=== PATIENT | male | born 1960 | race African-American/Black ===

== ENCOUNTER 2020-06-22 16:32 | Emergency (ER) | payer MEDICARE, OTHER ==
[2020-06-22 16:40] VITALS: TEMP 98.8
--- NOTE | 2020-06-22 16:52 | ED ---
General Adult HPI - General Chief complaint: Extremity Injury, Lower Stated complaint: Leg pain Time Seen by Provider: 06/22/20 16:40 Source: patient, RN notes reviewed, old records reviewed Mode of arrival: wheelchair Limitations: no limitations - History of Present Illness Initial comments: 60-year-old male presenting for evaluation of left hip pain. This is been ongoing for at least one month. He states the pain is worse with ambulation. He denies injury or trauma. He denies pain beyond the knee. He states the pain from his hip does radiate into his anterior thigh. He denies fever or chills. Denies abdominal pain. He states that time the pain is severe especially when he tries to walk long distances or uses this hip. He denies numbness or tingling to the leg. - Related Data Home Medications Medication Instructions Recorded Confirmed Cholecalciferol [Vitamin D3 (25 1,000 unit PO DAILY 06/22/20 06/22/20 Mcg = 1000 Iu)] Synthroid Unknown Dose 1 tab PO DAILY 06/22/20 06/22/20 metFORMIN HCL [Glucophage] 500 mg PO BID 06/22/20 06/22/20 Previous Rx's Medication Instructions Recorded Ibuprofen [Motrin] 400 mg PO Q6HR PRN #30 tab 06/22/20 Allergies Allergy/AdvReac Type Severity Reaction Status Date / Time acetaminophen Allergy kidneys Verified 06/22/20 17:29 Review of Systems ROS Statement: Those systems with pertinent positive or pertinent negative responses have been documented in the HPI. ROS Other: All systems not noted in ROS Statement are negative. Past Medical History Past Medical History: Diabetes Mellitus Additional Past Medical History / Comment(s): "kidneys are weak." History of Any Multi-Drug Resistant Organisms: None Reported Additional Past Surgical History / Comment(s): 3 screws in left hand, javier in left and right shoulder, steel plate in right forearm, screws in pelvix, Past Psychological History: No Psychological Hx Reported Smoking Status: Former smoker Past Alcohol Use History: None Reported Past Drug Use History: None Reported General Exam Limitations: no limitations General appearance: alert, in no apparent distress Head exam: Present: atraumatic, normocephalic Eye exam: Present: normal appearance, PERRL ENT exam: Present: normal exam Neck exam: Present: normal inspection. Absent: tenderness, meningismus Respiratory exam: Present: normal lung sounds bilaterally. Absent: respiratory distress, wheezes Cardiovascular Exam: Present: regular rate, normal rhythm GI/Abdominal exam: Present: soft. Absent: distended, tenderness, guarding Extremities exam: Present: normal inspection, full ROM (Patient has good range of motion of the hip and knee.), normal capillary refill, other (Distal pulses on the left, 2+ dorsalis pedis, extremity is warm, there is no swelling, no edema.). Absent: pedal edema, joint swelling, calf tenderness Course Vital Signs 06/22/20 16:34 Temperature 98.8 F Pulse Rate 77 Respiratory 17 Rate Blood Pressure 129/83 O2 Sat by Pulse 96 Oximetry Medical Decision Making - Medical Decision Making X-ray performed of the left hip negative for fracture dislocation, does show osteoarthritis of the left hip. Patient will try Tylenol Motrin [id number]. He will follow-up with his primary care physician. Disposition Clinical Impression: Osteoarthritis of hip Disposition: HOME SELF-CARE Condition: Good Instructions (If sedation given, give patient instructions): Osteoarthritis (ED) Prescriptions: Ibuprofen [Motrin] 400 mg PO Q6HR PRN #30 tab PRN Reason: Pain Is patient prescribed a controlled substance at d/c from ED?: No Referrals: Nonstaff,Physician [Primary Care Provider] - 1-2 days Geovanni Dos Santos MD [REFERRING] - 1-2 days Time of Disposition: 17:37
--- NOTE | 2020-06-22 17:27 | XR ---
Left hip HISTORY: Pain 2 views of the left hip There is distortion of the superior and inferior pubic ramus, correlate for history of trauma, fractu re, suspect possible similar findings along the inferior pubic ramus on the right. Geode formation pr esent within the femoral head, question some mild marginal spurring. Bone mineralization and alignmen t are otherwise maintained. Joint space within normal limits. IMPRESSION: Mild osteoarthritic change is suspected. Correlate for history of trauma to the pelvis as described.
[2020-06-22 18:06] VITALS: BP 136/71; PULSE 86; RESP 16
[2020-06-22 18:14] LABS: Glucose,Whole Blood 301 mg/dL (75-99)
== END 2020-06-22 18:05 | disposition home or self-care (01) ==
LOC: EC 16:32
DX: M16.12 Unilateral primary osteoarthritis, left hip (principal); E11.9 Type 2 diabetes mellitus without complications; Z79.84 Long term (current) use of oral hypoglycemic drugs; Z79.899 Other long term (current) drug therapy; Z87.891 Personal history of nicotine dependence; Z88.6 Allergy status to analgesic agent
CPT/HCPCS: 36415; 73502; 99284

== ENCOUNTER 2020-07-11 20:01 | Emergency (ER) | payer MEDICARE ==
[2020-07-11 20:06] VITALS: RESP 18
--- NOTE | 2020-07-11 20:30 | ED ---
Extremity Problem HPI - General Chief complaint: Extremity Problem,Nontraumatic Stated complaint: L Leg Pain Time Seen by Provider: 07/11/20 20:09 Source: patient Mode of arrival: wheelchair Limitations: no limitations - History of Present Illness Initial comments: Patient is a 60-year-old male presenting to emergency Department with complaints of pain and burning in his left calf for the past week. He does not remember any sort of injury to the calf. He states he normally walks with a cane secondary to his right lower extremity being weak. He denies any fever, chills, cough, shortness of breath. He denies history of DVTs. He does not take blood thinner. He has no further complaints at this time. Upon arrival to the ER, his vital signs are stable. - Related Data Home Medications Medication Instructions Recorded Confirmed Cholecalciferol [Vitamin D3 (25 1,000 unit PO DAILY 06/22/20 06/22/20 Mcg = 1000 Iu)] Synthroid Unknown Dose 1 tab PO DAILY 06/22/20 06/22/20 metFORMIN HCL [Glucophage] 500 mg PO BID 06/22/20 06/22/20 Previous Rx's Medication Instructions Recorded Ibuprofen [Motrin] 400 mg PO Q6HR PRN #30 tab 06/22/20 Allergies Allergy/AdvReac Type Severity Reaction Status Date / Time acetaminophen Allergy kidneys Verified 07/11/20 20:06 Review of Systems ROS Statement: Those systems with pertinent positive or pertinent negative responses have been documented in the HPI. ROS Other: All systems not noted in ROS Statement are negative. Past Medical History Past Medical History: Diabetes Mellitus Additional Past Medical History / Comment(s): "kidneys are weak." History of Any Multi-Drug Resistant Organisms: None Reported Additional Past Surgical History / Comment(s): 3 screws in left hand, javier in left and right shoulder, steel plate in right forearm, screws in pelvix, Past Psychological History: No Psychological Hx Reported Smoking Status: Former smoker Past Alcohol Use History: None Reported Past Drug Use History: None Reported General Exam - General Exam Comments Initial Comments: GENERAL: Patient is well-developed and well-nourished. Patient is nontoxic and in no acute distress. HEAD: Atraumatic, normocephalic. EYES: Pupils equal round and reactive to light, extraocular movements intact, sclera anicteric, conjunctiva are normal. Eyelids were unremarkable. ENT: TMs normal, nares patent, oropharynx clear without exudates. Moist mucous membranes. NECK: Normal range of motion, supple without lymphadenopathy or JVD. LUNGS: Unlabored respirations. Breath sounds clear to auscultation bilaterally and equal. No wheezes rales or rhonchi. HEART: Regular rate and rhythm without murmurs, rubs or gallops. ABDOMEN: Soft, nontender, normoactive bowel sounds. No guarding, no rebound. No masses appreciated. : Deferred MUSCULOSKELETAL: Patient has some mild pain with palpation of the left calf, also behind the left knee. He is neurovascular intact. There is no obvious swelling, erythema. No clubbing or cyanosis. NEUROLOGICAL: Patient is alert and oriented x 3. Motor and sensory are also intact. Cranial nerves II through XII grossly intact. Symmetrical smile. Normal speech, normal gait. PSYCH: Normal mood, normal affect. SKIN: Warm, Dry, normal turgor, no rashes or lesions noted. Limitations: no limitations Course Vital Signs 07/11/20 20:01 Temperature 98.4 F Pulse Rate 82 Respiratory 18 Rate Blood Pressure 118/75 O2 Sat by Pulse 98 Oximetry Medical Decision Making - Medical Decision Making Patient is a 60-year-old male here for left calf pain times one week without a specific injury or event. Vital signs are stable. Patient does have some mild pain with palpation of the left calf, no erythema or swelling. They did ultrasound of the left lower extremity which reveals no evidence of DVT. I discussed these findings with the patient and this is most likely muscle strain. I recommended heat to the area, gentle stretching. He may take Motrin for discomfort. He is stable for discharge. Patient is agreement with this plan of care. He can follow up with PCP as symptoms persist. Disposition Clinical Impression: Strain of left calf muscle Disposition: HOME SELF-CARE Condition: Stable Instructions (If sedation given, give patient instructions): Muscle Strain (ED) Additional Instructions: Please return to the Emergency Department if symptoms worsen or any other concerns. Ultrasound is negative for DVT. This is most likely muscle strain. Continue to use heat to the area, gentle stretching, Motrin for discomfort. Follow-up with PCP as symptoms persist. Is patient prescribed a controlled substance at d/c from ED?: No Referrals: None,Stated [Primary Care Provider] - 1-2 days
--- NOTE | 2020-07-11 21:56 | US ---
EXAMINATION TYPE: US venous doppler duplex LE LT DATE OF EXAM: 07/11/2020 9:13 PM COMPARISON: NONE CLINICAL HISTORY: pain, burning in calf. SIDE PERFORMED: Left TECHNIQUE: The lower extremity deep venous system is examined utilizing real time linear array sonog mor with graded compression, doppler sonography and color-flow sonography. VESSELS IMAGED: External Iliac Vein (EIV) Common Femoral Vein Deep Femoral Vein Greater Saphenous Vein * Femoral Vein Popliteal Vein Small Saphenous Vein * Proximal Calf Veins (* superficial vessels) Left Leg: Negative for DVT IMPRESSION: No evidence of deep vein thrombosis in the left leg.
[2020-07-11 22:20] VITALS: BP 120/79; PULSE 85; TEMP 98.5
== END 2020-07-11 22:19 | disposition home or self-care (01) ==
LOC: EC 20:01
DX: S86.912A Strain of unspecified muscle(s) and tendon(s) at lower leg level, left leg, initial encounter (principal); E11.9 Type 2 diabetes mellitus without complications; Z79.84 Long term (current) use of oral hypoglycemic drugs; Z88.6 Allergy status to analgesic agent; Z87.891 Personal history of nicotine dependence; X58.XXXA Exposure to other specified factors, initial encounter
CPT/HCPCS: 99283

== ENCOUNTER 2020-08-24 13:10 | Emergency (ER) | payer MEDICARE ==
[2020-08-24 13:28] VITALS: BP 129/80; PULSE 97; RESP 18; TEMP 98.3
[2020-08-24] MEDS ORDERED: KETOROLAC 15 MG/ML 1 ML VIAL IM STA (13:47)
--- NOTE | 2020-08-24 13:52 | ED ---
General Adult HPI - General Chief complaint: Extremity Problem,Nontraumatic Stated complaint: lt arm pain Time Seen by Provider: 08/24/20 13:25 Source: patient, RN notes reviewed, old records reviewed Mode of arrival: ambulatory Limitations: no limitations - History of Present Illness Initial comments: This is a 60-year-old male who presents emergency Department complaining that he recently started lifting weights started having pain on the medial aspect of his left elbow. Patient states touching there is very tender and anytime he lifts anything it hurts. Patient states he did try to lift again and her to bed. Patient decided come to the emergency department to have it evaluated. Patient denies taking anything for her. Patient denies any swelling to the hand forearm or arm. Patient denies any redness to the area. Patient denies any weakness. Patient denies any numbness. She denies any direct injury to that area patient denies any symptoms associated with the neck. - Related Data Home Medications Medication Instructions Recorded Confirmed Cholecalciferol [Vitamin D3 (25 1,000 unit PO DAILY 06/22/20 06/22/20 Mcg = 1000 Iu)] Synthroid Unknown Dose 1 tab PO DAILY 06/22/20 06/22/20 metFORMIN HCL [Glucophage] 500 mg PO BID 06/22/20 06/22/20 Previous Rx's Medication Instructions Recorded Ibuprofen [Motrin] 400 mg PO Q6HR PRN #30 tab 06/22/20 Ibuprofen [Motrin] 600 mg PO Q6HR PRN #20 tab 08/24/20 Allergies Allergy/AdvReac Type Severity Reaction Status Date / Time acetaminophen Allergy kidneys Verified 08/24/20 13:30 Review of Systems ROS Statement: Those systems with pertinent positive or pertinent negative responses have been documented in the HPI. ROS Other: All systems not noted in ROS Statement are negative. Past Medical History Past Medical History: Diabetes Mellitus Additional Past Medical History / Comment(s): "kidneys are weak." History of Any Multi-Drug Resistant Organisms: None Reported Additional Past Surgical History / Comment(s): 3 screws in left hand, javier in left and right shoulder, steel plate in right forearm, screws in pelvix, Past Psychological History: No Psychological Hx Reported Smoking Status: Former smoker Past Alcohol Use History: None Reported Past Drug Use History: None Reported General Exam - General Exam Comments Initial Comments: GENERAL Patient is well-developed and well-nourished. Patient is in mild distress. EYES Patient's pupils are equal and round. Extraocular motion is intact SKIN Unremarkable NEURO The patient is alert and oriented 3 PYSCH Patient has normal interpersonal interactions. MUSCULOSKELETAL Patient has tenderness at the medial medial aspect just distal to the epicondyle. Very consistent with medial epicondylitis. Limitations: no limitations Course Vital Signs 08/24/20 13:26 Temperature 98.3 F Pulse Rate 97 Respiratory 18 Rate Blood Pressure 129/80 O2 Sat by Pulse 98 Oximetry Medical Decision Making - Medical Decision Making Patient got a shot of Toradol emergency department. Disposition Clinical Impression: Medial epicondylitis Disposition: HOME SELF-CARE Instructions (If sedation given, give patient instructions): Tennis Elbow (ED) Prescriptions: Ibuprofen [Motrin] 600 mg PO Q6HR PRN #20 tab PRN Reason: For pain Is patient prescribed a controlled substance at d/c from ED?: No Referrals: Nonstaff,Physician [Primary Care Provider] - 1-2 days Time of Disposition: 13:50
== END 2020-08-24 14:20 | disposition home or self-care (01) ==
LOC: EC 13:10
DX: M77.00 Medial epicondylitis, unspecified elbow (principal); E11.9 Type 2 diabetes mellitus without complications; Z79.84 Long term (current) use of oral hypoglycemic drugs; Z79.890 Hormone replacement therapy; Z88.6 Allergy status to analgesic agent; Z87.891 Personal history of nicotine dependence
CPT/HCPCS: 99283 ×2; 96372 ×2; J1885

== ENCOUNTER 2020-09-24 14:53 | Emergency (ER) | payer MEDICARE ==
[2020-09-24 15:08] VITALS: BP 120/79; PULSE 82; RESP 18; TEMP 98.5
--- NOTE | 2020-09-24 16:23 | XR ---
Left elbow HISTORY: Pain 3 views of the left elbow Bone mineralization, joint spaces and alignment are maintained. There is no fracture or dislocation. No evident joint effusion. Mild spurring present at the coronoid process. IMPRESSION: No acute abnormalities evident.
--- NOTE | 2020-09-24 17:01 | ED ---
General Adult HPI - General Chief complaint: Extremity Injury, Upper Stated complaint: Left Arm Pain Time Seen by Provider: 09/24/20 15:14 Source: patient, RN notes reviewed Mode of arrival: ambulatory Limitations: no limitations - History of Present Illness Initial comments: 60-year-old male with a past medical history of diabetes presents for left elbow pain. Patient reports that he was lifting weights 2 weeks ago when he felt the pain in the medial aspect of the left elbow. States that ever since that time it is her with different types of movements. States that particularly putting his seatbelt on hurts his elbow. Denies any pain in his elbow at rest. Denies any swelling in the left arm.Patient has no other complaints at this time inclu ding shortness of breath, chest pain, abdominal pain, nausea or vomiting, headache, or visual changes. - Related Data Home Medications Medication Instructions Recorded Confirmed Ergocalciferol [Vitamin D2] 50,000 unit PO ESPINAL 09/24/20 09/24/20 metFORMIN HCL 1,000 mg PO BID 09/24/20 09/24/20 Allergies Allergy/AdvReac Type Severity Reaction Status Date / Time acetaminophen Allergy kidneys Verified 09/24/20 16:33 Review of Systems ROS Statement: Those systems with pertinent positive or pertinent negative responses have been documented in the HPI. ROS Other: All systems not noted in ROS Statement are negative. Past Medical History Past Medical History: Diabetes Mellitus Additional Past Medical History / Comment(s): "kidneys are weak." History of Any Multi-Drug Resistant Organisms: None Reported Additional Past Surgical History / Comment(s): 3 screws in left hand, javier in left and right shoulder, steel plate in right forearm, screws in pelvix, Past Psychological History: No Psychological Hx Reported Smoking Status: Former smoker Past Alcohol Use History: None Reported Past Drug Use History: None Reported General Exam Limitations: no limitations General appearance: alert, in no apparent distress Head exam: Present: atraumatic, normocephalic, normal inspection Eye exam: Present: normal appearance, PERRL, EOMI. Absent: scleral icterus, conjunctival injection, periorbital swelling ENT exam: Present: normal exam, mucous membranes moist Neck exam: Present: normal inspection, full ROM. Absent: tenderness, meningismus, lymphadenopathy Respiratory exam: Present: normal lung sounds bilaterally. Absent: respiratory distress, wheezes, rales, rhonchi, stridor Cardiovascular Exam: Present: regular rate, normal rhythm, normal heart sounds. Absent: systolic murmur, diastolic murmur, rubs, gallop, clicks Extremities exam: Present: full ROM (Full range of motion of the left upper extremity however patient does have pain with full flexion of the left elbow.), normal capillary refill (Capillary refill less than 2 seconds, radial pulse 2+ in the left upper extremity.). Absent: tenderness (No tenderness of the left elbow including the medial and lateral epicondyles or the olecranon process.), pedal edema, joint swelling (There is no erythema or edema noted of the left arm.), calf tenderness Course Vital Signs 09/24/20 15:07 Temperature 98.5 F Pulse Rate 82 Respiratory 18 Rate Blood Pressure 120/79 O2 Sat by Pulse 97 Oximetry Medical Decision Making - Medical Decision Making X-ray of the left elbow is negative. At this time neurovascular status is intact. There is no erythema or edema of the left upper extremity. Patient was wrapped with an Stevie wrap and referred to orthopedics. He will return here for any worsening symptoms and in the meantime will take Motrin and Tylenol for pain as well as utilize rice therapy Disposition Clinical Impression: Elbow pain, left Disposition: HOME SELF-CARE Condition: Good Instructions (If sedation given, give patient instructions): Elbow Sprain (ED) Additional Instructions: Please take Motrin and Tylenol for pain. Rest ice and elevate the left elbow. Follow-up with orthopedics in one to 2 days. Return to the ER if you have any worsening symptoms. Is patient prescribed a controlled substance at d/c from ED?: No Referrals: Geovanni Dos Santos MD [Primary Care Provider] - 1-2 days Jeanna Ordoñez DO [Doctor of Osteopathic Medicine] - 1-2 days Time of Disposition: 17:00
== END 2020-09-24 17:23 | disposition home or self-care (01) ==
LOC: EC 14:53
DX: M25.522 Pain in left elbow (principal); E11.9 Type 2 diabetes mellitus without complications; Z79.84 Long term (current) use of oral hypoglycemic drugs; Z88.6 Allergy status to analgesic agent; Z87.891 Personal history of nicotine dependence
CPT/HCPCS: 99283